=== PATIENT | male | born 1985 | race Caucasian/White ===

== ENCOUNTER 2016-09-19 08:13 | Emergency (ER) | payer SELFPAY ==
[2016-09-19] MEDS ORDERED: KETOROLAC TROMETHAMINE 60 MG/2 ML VIAL IM ONE (09:57)
--- NOTE | 2016-09-19 10:41 | ED Physician Documentation ---
General Adult - HISTORIAN Historian: patient, spouse - HPI Stated Complaint: rib pain Chief Complaint: General Adult Onset: hours Timing: still present Severity: moderate Further Comments: yes (Pt is a 30 yo male with L-sided rib/muscle pain. Pt said that he twisted and felt muscle spasm and then coughed and now has pain in his lower L rib cage.) - ROS CONST: no problems EYES/ENT: none CVS/RESP: other (rib cage pain, lower L) GI/: none MS/SKIN/LYMPH: other (L lower rib cage pain) - PAST HX Past History: other (obesity) Allergies/Adverse Reactions: Allergies Allergy/AdvReac Type Severity Reaction Status Date / Time Penicillins Allergy Unknown Verified 01/12/14 12:46 Home Medications: Ambulatory Orders Medication Instructions Recorded Ranitidine HCl [Zantac] 150 mg PO BID 01/12/14 - SOCIAL HX Smoking History: cigarettes - FAMILY HX Family History: No - VITAL SIGNS Vital Signs: Vital Signs Temp Pulse Resp BP Pulse Ox 98.1 F 114 H 16 156/83 95 09/19/16 09:29 09/19/16 09:29 09/19/16 09:29 09/19/16 09:29 09/19/16 09:29 - REVIEWED ASSESSMENTS Nursing Assessment Reviewed: Yes Vitals Reviewed: Yes Progress - Progress Progress: X-ray L ribs/chest: Negative study. No fracture. Toradol 60 mg IM Rx Flexeril 10 mg po q 8 hrs prn. ED Results Lab/Radiology - Orders Orders: ED Orders Category Date Time Status RIBS UNILATERAL W/ PA CHEST [RAD] Stat Exams 09/19/16 Ordered Ketorolac Tromethamine [Toradol] Med 09/19/16 09:57 Discontinued 60 mg IM NOW ONE General Adult Physical Exam - PHYSICAL EXAM GENERAL APPEARANCE: mild distress NECK: normal inspection, supple RESPIRATORY: no resp distress, chest non-tender, other (lower L rib tenederness) CVS: reg rate & rhythm, heart sounds normal ABDOMEN: soft, no organomegaly, normal bowel sounds BACK: normal inspection SKIN: warm/dry, normal color EXTREMITIES: non-tender, normal range of motion, no evidence of injury NEURO: oriented X3, motor nml, sensation nml Discharge Clincal Impression: L rib pain, muscle strain Referrals: Primary Doctor,No [Primary Care Provider] - Home Medications: Ambulatory Orders Ranitidine HCl [Zantac] 150 mg PO BID 01/12/14 Condition: Good Disposition: 01 HOME, SELF-CARE Decision to Admit: NO Decision Time: 10:44
[2016-09-19 10:55] VITALS: BP 138/82
--- NOTE | 2016-09-19 12:10 | Diagnostic Imaging Report ---
[facility] [address] [facility] [address] [place], [place]. [address] Report Submission Date: Sep 19, 2016 10:30:33 AM CDT Patient Study Name: GIN THOMASON Date: Sep 19, 2016 10:03:02 AM CDT Modality Type: CR Gender: M Description: CHEST : 85 Institution: [facility] Physician TERESA EMMANUEL - RITU Chest and left ribs CLINICAL HISTORY: Left-sided rib pain since last night. FINDINGS: Examination of the chest in single PA view demonstrates the lungs to be clear. Cardiovascular and mediastinal silhouettes are within normal limits. Examination of the left rib cage in AP, oblique and coned-down views of the lower ribs fails to demonstrate evidence of fracture. There is no pneumothorax. IMPRESSION: Negative study. No fracture. Electronically signed on Sep 19, 2016 10:30:33 AM CDT by: Aguilar JARA
== END 2016-09-19 10:44 | disposition home or self-care (01) ==
LOC: ED 08:13
DX: R07.81 Pleurodynia (principal)
CPT/HCPCS: 71101; J1885; 96372; 99283

== ENCOUNTER 2017-07-29 08:19 | Emergency (ER) | payer OTHER ==
[2017-07-29 08:32] VITALS: BP 144/80
--- NOTE | 2017-07-29 08:57 | ED Physician Documentation ---
Fall - HISTORIAN Historian: patient - HPI Stated Complaint: R ankle pain Chief Complaint: Fall Onset: just prior to arrival Where: home - ROS CONST: no problems NEURO: denies: dizziness MS/SKIN/LYMPH: ankle swelling (right). denies: weakness, numbness, neck pain, back pain, leg swelling, rash, other EYES/ENT: none CVS/RESP: none GI/: denies: problems urinating, nausea, vomiting Comment: All systems negative, except as noted in H&P - PAST HX Past History: other (GERD) Allergies/Adverse Reactions: Allergies Allergy/AdvReac Type Severity Reaction Status Date / Time Penicillins Allergy Unknown Verified 07/29/17 08:32 Home Medications: Ambulatory Orders Medication Instructions Recorded Ranitidine HCl [Zantac] 150 mg PO BID 01/12/14 - SOCIAL HX Smoking History: cigarettes - FAMILY HX Family History: denies: none - VITAL SIGNS Vital Signs: Vital Signs Temp Pulse Resp BP Pulse Ox 97.6 F 94 H 17 144/80 97 07/29/17 08:22 07/29/17 08:22 07/29/17 08:22 07/29/17 08:22 07/29/17 08:22 - REVIEWED ASSESSMENTS Nursing Assessment Reviewed: Yes Vitals Reviewed: Yes ED Results Lab/Radiology - Radiology Radiology Impressions: Examination: Plain film right ankle History: 3V Ankle - pain after fall and twisting from slipping on icy stairs (Hx ) Findings: 3 views of the right ankle demonstrates normal cortical margins. No fracture or dislocation. Talar dome is intact. Lateral soft tissue swelling. No joint effusion. Impression: Soft tissue swelling. No acute osseous process. Electronically signed on Jul 29, 2017 9:05:51 AM FUEL SYSTEM MAINTENANCE SUPERVISOR by: Nolan Mendosa - Orders Orders: ED Orders Category Date Time Status ANKLE 3 VIEWS OR MORE [RAD] Stat Exams 07/29/17 Ordered Fall Physical Exam - Physical Exam General Appearance: mild distress Head: non-tender, no swelling Neck: non-tender, painless ROM, trachea midline Eye: MARK Resp/CVS: other (RRR) Neuro: oriented x3, sensation nml, motor nml, mood/affect nml Skin: color nml Extremities: atraumatic, nml color/temp, painful weight bearing (right ankle), other (mild lateral edema right ankle) - [place] Coma Score Eyes Open: Spontaneous Speech: Oriented Motor: Obeys Commands Discharge Clincal Impression: Right ankle sprain Qualifiers: Encounter type: initial encounter Involved ligament of ankle: unspecified ligament Qualified Code(s): S93.401A - Sprain of unspecified ligament of right ankle, initial encounter Referrals: Primary Doctor,No [Primary Care Provider] - 2 Days Additional Instructions: Ice Rest Elevation - above the level of your heart If you are unable to bear weight and continuing to have significant pain on day 3-4; see your PCP for re-evaluation and additional xrays. You may use Tylenol every 4hour as needed for pain. Limit your dose to less than 4 G per day. Take Ibuprofen 800mg three times a day with food for the next 3 days. Condition: Stable Disposition: 01 HOME, SELF-CARE Decision to Admit: NO Decision Time: 09:05
--- NOTE | 2017-07-29 14:07 | Diagnostic Imaging Report ---
MARCELO GUEVARA (ANTIQUE REPAIRER) - ER [facility] [address] [address] Report Submission Date: Jul 29, 2017 9:05:51 AM MEDICAL DEVICE SALES REPRESENTATIVE Patient Study Name: GIN THOMASON Date: Jul 29, 2017 8:48:28 AM MEDICAL DEVICE SALES REPRESENTATIVE Modality Type: DX Gender: M Description: LOWER EXTREMITY : 85 Institution: [facility] Physician: MARCELO GUEVARA (CRISTO) - ER Examination: Plain film right ankle History: 3V Ankle - pain after fall and twisting from slipping on icy stairs (Hx ) Findings: 3 views of the right ankle demonstrates normal cortical margins. No fracture or dislocation. Talar dome is intact. Lateral soft tissue swelling. No joint effusion. Impression: Soft tissue swelling. No acute osseous process. Electronically signed on Jul 29, 2017 9:05:51 AM MEDICAL DEVICE SALES REPRESENTATIVE by: Nolan JARA
== END 2017-07-29 09:30 | disposition home or self-care (01) ==
LOC: ED 08:19
DX: S93.401A Sprain of unspecified ligament of right ankle, initial encounter (principal); X58.XXXA Exposure to other specified factors, initial encounter; Y92.9 Unspecified place or not applicable; Y93.9 Activity, unspecified; Y99.9 Unspecified external cause status
CPT/HCPCS: 73610; 99282; 99283

== ENCOUNTER 2019-05-14 09:08 | Emergency (ER) | payer BC, OTHER ==
[2019-05-14] MEDS ORDERED: methylPREDNISolone SOD SUCC 125 MG/2 ML VIAL IM ONE (09:47)
--- NOTE | 2019-05-14 09:48 | ED Physician Documentation ---
Sore Throat/Dental Pain - HISTORIAN Historian: patient - HPI Stated Complaint: sore throat Chief Complaint: Sore Throat Additional Information: Patient presents to ED with a 2 day history of sore throat, headache and low grade fever. Patient states his girlfriend has strep throat. Onset: days ago (2) Associated Symptoms: fever - ROS CONST: no problems CVS/RESP: none GI/: denies: nausea MS/SKIN/LYMPH: denies: rash - PAST HX Past History: none Other History: none Allergies/Adverse Reactions: Allergies Allergy/AdvReac Type Severity Reaction Status Date / Time Penicillins Allergy Unknown Verified 05/14/19 09:35 Home Medications: Ambulatory Orders Medication Instructions Recorded Ranitidine HCl [Zantac] 150 mg PO BID 01/12/14 Cefdinir 300 mg PO Q12 #20 capsule 05/14/19 - SOCIAL HX Smoking History: non-smoker Alcohol Use: none Drug Use: none - FAMILY HX Family History: No - VITAL SIGNS Vital Signs: Vital Signs Temp Pulse Resp BP Pulse Ox 98.3 F 86 18 148/77 95 05/14/19 09:29 05/14/19 09:29 05/14/19 09:29 05/14/19 09:29 05/14/19 09:29 - REVIEWED ASSESSMENTS Nursing Assessment Reviewed: Yes Vitals Reviewed: Yes ED Results Lab/Radiology - Lab Results Lab Results: Lab Results 05/14/19 09:21 Group A Strep Screen Positive H (NEGATIVE) - Orders Orders: ED Orders Category Date Time Status GRP A STREP SCREEN Routine Lab 05/14/19 09:21 Completed methylPREDNISolone SOD SUCC [SOLU-Medrol] Med 05/14/19 09:47 Discontinued 125 mg IM NOW ONE Sore throat Physical Exam - EXAM General Appearance: no acute distress, alert Head/Neck: head nml inspection. No: cervical lymphadenopathy Eyes: PERRL Mouth/Throat: pharyngeal erythema. No: tonsillar exudate Ear/Nose: nml inspection Respiratory: no resp. distress, breath sounds nml CVS: reg. rate & rhythm, heart sounds nml Abdomen: soft, normal bowel sounds, non-tender Extremities: non-tender Skin: warm/dry Neuro/Psych: oriented x3 Discharge Clincal Impression: Strep pharyngitis Prescriptions: Cefdinir 300 mg PO Q12 #20 capsule Referrals: Primary Doctor,No [Primary Care Provider] - 2 Days Additional Instructions: 1. Start antibiotics today. Take until gone 2. Tylenol and/or Ibuprofen as needed for pain 3. Salt water gargles every 8 hours 4. Follow up with PCP within 1 week 5. Return to ER for new or worsening symptoms Condition: Stable Disposition: 01 HOME, SELF-CARE Decision to Admit: NO Date of Decison to Admit: 05/14/19 Decision Time: 10:08
[2019-05-14 10:10] VITALS: BP 144/80
== END 2019-05-14 10:04 | disposition home or self-care (01) ==
LOC: ED 09:08
DX: J02.0 Streptococcal pharyngitis (principal)
CPT/HCPCS: 87880; 96372; 99284; J2930; 96360; 96361